=== PATIENT | female | born 1970 | race African-American/Black ===

== ENCOUNTER → 2018-02-25 | Outpatient (CLI) | payer OTHER | LOC: BICRAD 01-23 16:30 → EDSTATUS 14:24 → BICRAD 15:23 | PROVIDERS: ATTEND Family Medicine | DX: R06.02 Shortness of breath (principal) | CPT/HCPCS: 71046 ==

== ENCOUNTER 2018-03-13 11:18 | Outpatient (CLI) | payer OTHER ==
--- NOTE | 2018-03-24 10:53 | MMO ---
BILATERAL DIGITAL SCREENING MAMMOGRAMS: Date: 03/13/18 This patient's mammogram was interpreted with the assistance of computer-aided detection. Comparison made with exam of 05/17/16. FINDINGS: The breast tissue is heterogeneously dense, which may reduce the sensitivity of mammography. Benign c alcifications are present. No suspicious masses or calcifications are identified. IMPRESSION: BIRADS 2: Benign Finding(s) Return to annual mammographic screening. POS: MISSY
== END 2018-03-13 11:19 | disposition home or self-care (01) ==
LOC: SCSMAMMO 11:18
PROVIDERS: ATTEND Family Medicine
DX: Z12.31 Encounter for screening mammogram for malignant neoplasm of breast (principal)
CPT/HCPCS: 77067

== ENCOUNTER 2022-04-19 10:56 | Outpatient (CLI) | payer BC | END 2022-04-19 10:57 | disposition home or self-care (01) | LOC: BICMAMMO 10:56 | PROVIDERS: ATTEND Family Medicine | DX: Z12.31 Encounter for screening mammogram for malignant neoplasm of breast (principal) | CPT/HCPCS: 77063; 77067 ==